=== PATIENT | female | born 1975 | race Caucasian/White ===

== ENCOUNTER 2016-09-26 10:28 | Emergency (ER) | payer OTHER ==
[2016-09-26 11:39] LABS: BASOPHIL 0.2 % (0-2); EOSINOPHIL 0.2 % (0-5); HCT 42.5 % (37.0-47.0); HGB 14.2 g/dl (12.5-16.0); LYMPHOCYTE 18.9 % (15-48); MCH 30.2 pg (25.0-31.0); MCHC 33.4 g/dL (32.0-36.0); MCV 90.4 fL (78.0-100.0); MONOCYTE 3.8 % (0-12); MPV 9.4 fL (6.0-9.5); NEUTROPHIL 76.9 % (41-80); PLT 415 K/uL (150-400); RDW 15.6 % (11.5-14.0); WBC 17.9 K/uL (4.0-10.5)
[2016-09-26 11:50] LABS: ALBUMIN 4.3 g/dL (3.5-5.0); BILIRUBIN - TOTAL 0.2 mg/dL (0.1-1.0); CREATININE 0.7 mg/dL (0.5-1.0); POTASSIUM 4.3 mmol/L (3.5-5.1); TOTAL PROTEIN 7.3 g/dL (6.4-8.3)
[2016-09-26 11:57] LABS: BILIRUBIN NEGATIVE (NEGATIVE); BLOOD TRACE-INTACT Ery/uL (NEGATIVE); CLARITY HAZY (CLEAR); COLOR YELLOW (YELLOW); GLUCOSE (U) NORMAL (NORMAL); KETONE (U) 1+ (SMALL) mg/dL (NEGATIVE); LEUKOCYTES NEGATIVE Leu/uL (NEGATIVE); NITRITE NEGATIVE (NEGATIVE); PROTEIN TRACE (LOW) mg/dL (NEGATIVE); UROBILINOGEN 0.2 mg/dL (0.2-1.0)
[2016-09-26 12:03] LABS: BACTERIA 1+
[2016-09-26 12:04] LABS: MUCOUS TRACE
== END 2016-09-26 13:18 | disposition home or self-care (01) ==
LOC: FER 10:28
PROVIDERS: Nurse Practitioner
DX: R11.2 Nausea with vomiting, unspecified (principal); E11.9 Type 2 diabetes mellitus without complications; Z88.8 Allergy status to other drugs, medicaments and biological substances; Z79.84 Long term (current) use of oral hypoglycemic drugs
CPT/HCPCS: 36415; 80053; 81001; 82009; 82150; 83690; 85025; 87339; J2405

== ENCOUNTER → 2016-10-17 | Day surgery (SDC) | payer OTHER | END | disposition home or self-care (01) | LOC: FAS 08:28 | DX: K80.10 Calculus of gallbladder with chronic cholecystitis without obstruction (principal); R59.9 Enlarged lymph nodes, unspecified; R59.0 Localized enlarged lymph nodes; E11.9 Type 2 diabetes mellitus without complications; M50.30 Other cervical disc degeneration, unspecified cervical region; F17.210 Nicotine dependence, cigarettes, uncomplicated; J45.909 Unspecified asthma, uncomplicated; D50.9 Iron deficiency anemia, unspecified; I10 Essential (primary) hypertension; G47.00 Insomnia, unspecified; N92.0 Excessive and frequent menstruation with regular cycle; E53.8 Deficiency of other specified B group vitamins; E55.9 Vitamin D deficiency, unspecified; Z88.8 Allergy status to other drugs, medicaments and biological substances; Z82.49 Family history of ischemic heart disease and other diseases of the circulatory system; Z83.3 Family history of diabetes mellitus; Z81.1 Family history of alcohol abuse and dependence; Z80.8 Family history of malignant neoplasm of other organs or systems; Z80.3 Family history of malignant neoplasm of breast; Z80.41 Family history of malignant neoplasm of ovary; Z79.899 Other long term (current) drug therapy; Z79.84 Long term (current) use of oral hypoglycemic drugs; Z79.82 Long term (current) use of aspirin; Z98.890 Other specified postprocedural states | CPT/HCPCS: 84703; 88304; J1100; J1170; J1885; J2405; J2704; J2710; J3010 ==